=== PATIENT | female | born 1945 | race Hispanic/Latino ===

== ENCOUNTER 2019-05-14 11:24 | Inpatient (IN) | payer MEDICARE ==
--- OUTSIDE RECORDS SUMMARY | 2019-05-14 11:27 | XMS REPORT | Summary of Care ---
:1945 Author Organization [facility] [[email or web address]] - Health Address [address] [place] [id number] Support Name Relationship Address Phone Mayur Burroughs Unavailable 13 [birth year][address] [place] [address] Care Team Providers Name Role Phone Godwin Stein DO Medical Transcriber Daniel Ovalles Primary Care Provider Encounter Details Date Type Department Care Team Description 03/04/2019 Orders Only [facility] [[email or web address]] Doctor Unassigned, No [address] [facility] [place] [address] [address] [place] [address] Allergies No Known Allergiesdocumented as of this encounter (statuses as of 03/10/2019) Medications Medication Sig Dispensed Refills Start Date End Date Status acetaminophen 325 mg Take by mouth 0 Active tablet every 6 (six) hours as needed. MULTIVITAMIN/IRON/FOLIC Take by mouth. 0 Active ACID (CENTRUM COMPLETE ORAL) canagliflozin (INVOKANA) Take by mouth. 0 Active 100 mg tablet aspirin 81 mg chewable Take 81 mg by 0 Active tablet mouth daily. hydroCHLOROthiazide 25 mg Take 25 mg by 0 Active tablet mouth daily. metFORMIN 500 mg tablet Take 500 mg by 0 Active mouth 2 (two) times daily with meals. acetaminophen-codeine Take 1 tablet by 0 Active 300-30 mg tablet mouth every 4 (four) hours as needed. amLODIPine (NORVASC) 10 Take 10 mg by 0 Active mg tablet mouth daily. metFORMIN 1,000 mg 24 hr Take 1,000 mg by 0 Active tablet mouth daily with breakfast. glimepiride 4 mg tablet Take 4 mg by 0 Active mouth daily with breakfast. canagliflozin (INVOKANA) Take by mouth. 0 Active 300 mg tablet carvedilol 12.5 mg tablet Take 12.5 mg by 0 Active mouth 2 (two) times daily with meals. gabapentin 300 mg capsule Take 300 mg by 0 Active mouth 3 (three) times daily. Oxyquinoline-Na Lauryl Insert 0.5 1 Tube 3 10/16/2017 Active Sulfate (TRIMO-ASTUDILLO JELLY) Applicators into 0.025-0.01 % Gel vagina SEE-INSTRUCTIONS . Apply 1/2 applicator per vagina twice weekly until discontinue estradiol 0.01 % (0.1 Insert 1 g into 42.5 g 2 05/02/2018 Active mg/gram) vaginal vagina 2 (two) creamIndications: times per week Encounter for pessary (per protocol). maintenance documented as of this encounter (statuses as of 03/10/2019) Active Problems Problem Noted Date Encounter for pessary maintenance 03/04/2019 documented as of this encounter (statuses as of 03/10/2019) Social History Tobacco Use Types Packs/Day Years Used Date Former Smoker Quit: 07/28/2016 Smokeless Tobacco: Never Used Alcohol Use Drinks/Week oz/Week Comments No Sex Assigned at Date Recorded Not on file Job Start Date Occupation Industry Not on file Not on file Not on file Travel History Travel Start Travel End No recent travel history available. documented as of this encounter Last Filed Vital Signs Not on filedocumented in this encounter Plan of Treatment Date Type Specialty Care Team Description 06/03/2019 Office Visit Obstetrics & Gynecology Alicja Haines MD [address] [place] [address] [place] [address] [phone] Health Maintenance Due Date Last Done Comments HEPATITIS C (HCV) SCREEN 1945 DTaP,Tdap,and Td Vaccines (1 - Tdap) 1957 Zoster Recombinant Vaccine (SHINGRIX) 1996 (1 of 2) LUNG CANCER SCREEN: Recommended for 2001 age 55-80 with 30 + pack year history Medicare Wellness Visit 11/10/2011 Osteoporosis Screening 11/10/2011 PNEUMOCOCCAL VACCINES 65+ (1 of 2 - 11/10/2011 PCV13) Breast Cancer Screening (MAMMOGRAM) 08/11/2018 08/11/2017 (Previously completed), 10/20/2009 INFLUENZA VACCINE (#1) 2018 documented as of this encounter Procedures Procedure Name Priority Date/Time Associated Diagnosis Comments [id number] CONSENT Routine 03/04/2019 12:01 AM [employer] documented in this encounter Results Not on filedocumented in this encounter Insurance Payer Benefit Plan / Subscriber ID Effective Phone Address Type Group Dates [facility] [id number] 2019-Prese PPO HEALTHCARE HEALTHCARE/AARP nt [facility] [id number] 2018-Prese Medicare Adv HEALTHCARE - HEALTHCARE DUAL nt PPO MANAGED COMPLETE MEDICARE documented as of this encounter
--- OUTSIDE RECORDS SUMMARY | 2019-05-14 11:27 | XMS REPORT ---
:1945 Author Organization [facility] Address [address] [place] [address] Care Team Providers Name Role Phone Unavailable Unavailable Unavailable Problems This patient has no known problems. Allergies, Adverse Reactions, Alerts This patient has no known allergies or adverse reactions. Medications This patient has no known medications.
[2019-05-14] MEDS ORDERED: METOPROLOL TAR 25 MG TAB ONE (12:02)
[2019-05-14] MEDS ORDERED: METOPROLOL TARTRATE 5 MG/5 ML INJ IV ONE (12:03)
[2019-05-14 12:10] LABS: Absolute Lymphocytes (CBC) 2.4 K/uL (0.7-4.9); Basophils % 0.8 % (0-1.3); Hematocrit 34.4 % (36.0-45.0); Lymphocytes % 22.1 % (15.3-44.8); MPV 8.6 fL (7.6-11.3); RBC Red Blood Cell Count 3.63 M/uL (3.86-4.86)
[2019-05-14 12:14] LABS: Protime INR 1.12
--- NOTE | 2019-05-14 12:27 | RAD REPORT ---
EXAM DESCRIPTION: RAD - Chest Single View - 05/14/2019 12:13 pm CLINICAL HISTORY: DYSPNEA COMPARISON: Portable chest November 2012 TECHNIQUE: AP portable chest image was obtained 05/14/2019 12:13 pm . FINDINGS: No peripheral mass or consolidation. Minimal prominence of the interstitial pattern noted. This is not substantially different. Borderline or mild cardiomegaly is present accentuated by ryan ble technique and a slightly shallow inspiratory effort. Upper lobe vasculature is within limits of n ormal. Heart is accentuated by slight rotation. No measurable pleural effusion and no pneumothorax. N o acute bony abnormality seen. No acute aortic findings suspected. IMPRESSION: No focal mass or consolidation peer Heart size is upper normal or slightly enlarged. No significant failure or volume overload findings.
[2019-05-14 12:36] LABS: ALT/SGPT 26 U/L (12-78); AST/SGOT 32 U/L (15-37); Albumin 3.4 g/dL (3.4-5.0); Alkaline Phosphatase 56 U/L (45-117); BUN Blood Urea Nitrogen 27 mg/dL (7-18); Bicarbonate 24 mmol/L (21-32); Bilirubin Direct 0.1 mg/dL (0-0.2); Bilirubin Total 0.3 mg/dL (0.2-1.0); Glucose Level 209 mg/dL (74-106); Magnesium 1.5 mg/dL (1.8-2.4); NT PRO-BNP 3138 pg/mL (<125); Potassium 4.6 mmol/L (3.5-5.1); Protein, Total 8.4 g/dL (6.4-8.2); Sodium Level 139 mmol/L (136-145); Troponin (Emerg Dept Use Only) < 0.02 ng/mL (0.0-0.045)
--- NOTE | 2019-05-14 12:41 | ER ---
Nurse's Notes [facility] Name: Taryn Sebastian Age: 73 yrs Sex: Female : 1945 Arrival Date: 05/14/2019 Time: 11:28 Bed 8 Private MD: Daniel Ovalles E Diagnosis: Persistent atrial fibrillation;Dyspnea, unspecified Presentation: 05/13 11:34 Chief complaint: Patient states: "I just don't feel right, I think my afib is acting hb up." Pt reports worsening SOB, nonproductive cough, pain with cough, and nausea x 1 week. Coronavirus screen: Patient reports a subjective fever or greater than 100.4F, or cough, or shortness of breath, or difficulty breathing. Surgical mask placed on patient. Patient moved to private room, placed in contact and droplet isolation with eye protection until further assessment. Patient denies travel on a cruise ship or to a country the [facility] currently lists as an affected area. Ebola Screen: No symptoms or risks identified at this time. Initial Sepsis Screen: Does the patient meet any 2 criteria? No. Patient's initial sepsis screen is negative. Risk Assessment: Do you want to hurt yourself or someone else? Patient reports no desire to harm self or others. 11:34 Method Of Arrival: Wheelchair hb 11:34 Acuity: BASHIR 2 hb Historical: - Allergies: 11:37 No Known Allergies; hb - PMHx: 11:37 Atrial Fib; Diabetes - NIDDM; Arthritis; hb - PSHx: 11:37 portion of pancreas removed; spleenectomy; hb - Immunization history:: Adult Immunizations up to date. - Social history:: Smoking status: Patient denies any tobacco usage or history of. - Family history:: not pertinent. - Hospitalizations: : No recent hospitalization is reported. Screenin:45 Abuse screen: Denies threats or abuse. Nutritional screening: No deficits noted. em Tuberculosis screening: No symptoms or risk factors identified. Fall Risk None identified. Assessment: 11:45 General: Appears in no apparent distress. uncomfortable, well groomed, well developed, em well nourished, Behavior is calm, cooperative, appropriate for age, Denies fever. Pain: Complains of pain in chest Pain currently is 2 out of 10 on a pain scale. Pain began 1 week ago. Neuro: Level of Consciousness is awake, alert, obeys commands, Oriented to person, place, time, situation, Appropriate for age. Cardiovascular: Reports chest pain, diaphoresis, palpitations, shortness of breath, Capillary refill < 3 seconds Rhythm is atrial fibrillation with rapid ventricular response. Respiratory: Reports shortness of breath at rest Airway is patent Respiratory effort is even, Respiratory pattern is regular, tachypnea Breath sounds are clear bilaterally. GI: Abdomen is round non-distended, Bowel sounds present X 4 quads. Abd is soft X 4 quads Abdomen is tender to palpation in epigastric area, right upper quadrant and left upper quadrant Reports upper abdominal pain, Patient currently denies nausea, vomiting. Derm: Skin is intact, is thin, Skin is clammy, Skin is pink, Skin temperature is cool. Musculoskeletal: Capillary refill < 3 seconds, Range of motion: intact in all extremities. 12:15 Reassessment: Patient appears in no apparent distress at this time. Patient and/or em family updated on plan of care and expected duration. Pain level reassessed. Patient is alert, oriented x 3, equal unlabored respirations, skin warm/dry/pink. 12:50 Reassessment: Patient appears in no apparent distress at this time. Patient and/or em family updated on plan of care and expected duration. Pain level reassessed. Patient is alert, oriented x 3, equal unlabored respirations, skin warm/dry/pink. Patient states feeling better. 13:55 Reassessment: Dr. Galarza at bedside discussing POC. em Vital Signs: 11:34 BP 146 / 86; Pulse 40; Resp 18; Temp 97; Pulse Ox 95% on R/A; Weight 111.13 kg; Height hb 5 ft. 7 in. (170.18 cm); Pain 2/10; 12:00 BP 125 / 96; Pulse 161 MON; Resp 36 S; Pulse Ox 97% on R/A; Pain 2/10; em 12:15 BP 109 / 57; Pulse 124 MON; Resp 32; Pulse Ox 98% on R/A; Pain 0/10; em 12:50 BP 125 / 96; Pulse 135; Resp 28; Pulse Ox 95% on R/A; Pain 0/10; em 13:52 BP 118 / 81; Pulse 119; Resp 28; Pulse Ox 98% on 2 lpm NC; Pain 0/10; em 11:34 Body Mass Index 38.37 (111.13 kg, 170.18 cm) hb 12:00 A fib with Rapid ventricular response em 12:15 A fib with Rapid ventricular response em 12:50 placed on 2L via NC em ED Course: 11:28 Patient arrived in ED. mr 11:28 Daniel Ovalles MD is Private Physician. mr 11:36 Triage completed. hb 11:37 Arm band placed on. hb 11:39 Paige Weir, NO is Primary Nurse. tw2 11:42 Nabil Sutherland MD is Attending Physician. rn 11:45 Patient has correct armband on for positive identification. Placed in gown. Bed in low em position. Call light in reach. secured entrance monitor on. Pulse ox on. NIBP on. 11:48 EKG done, by ED staff, reviewed by Nabil Sutherland MD. em 12:00 Tung Grover RN is Primary Nurse. em 12:05 Initial lab(s) drawn, by mn, sent to lab. Inserted saline lock: 20 gauge in right em1 antecubital area, using aseptic technique. Blood collected. 12:15 XRAY Chest (1 view) In Process Unspecified. EDMS 12:41 Michell Bui MD is Hospitalizing Provider. rn 14:21 No provider procedures requiring assistance completed. Patient admitted, IV remains in em place. Administered Medications: 12:05 Drug: Metoprolol 5 mg Route: IVP; Site: right antecubital; em 12:15 Follow up: Response: No adverse reaction; Cardiac rhythm is unchanged em 12:10 Drug: Metoprolol 25 mg Route: PO; em 12:41 Follow up: Response: No adverse reaction em 12:55 Drug: Digoxin 0.125 mg Route: IVP; Site: right antecubital; em 13:05 Follow up: Response: No adverse reaction; Pain is unchanged, physician notified em 12:56 Drug: Magnesium Sulfate 1 grams Route: IVPB; Infused Over: 1 hrs; Site: right em antecubital; 14:23 Follow up: Response: No adverse reaction; IV Status: Completed infusion; IV Intake: em 100ml 13:20 Drug: Digoxin 0.125 mg Route: IVP; Site: right antecubital; jl7 13:52 Follow up: Response: No adverse reaction; Marked relief of symptoms em Intake: 14:23 IV: 100ml; Total: 100ml. em Outcome: 12:41 Decision to Hospitalize by Provider. rn 14:21 Admitted to Tele accompanied by tech, via wheelchair, room 428, with oxygen, on em monitor, with chart, Report called to NO Burns 14:21 Condition: good 14:21 Instructed on the need for admit, Demonstrated understanding of instructions. 14:23 Patient left the ED. em Signatures: Dispatcher [employer] Manda Guillen Edgar, RN Nabil Ann MD MD rn Martinez, Eric em1 Ruth Ann Ellsworth RN RN hb Wise, Tara, RN RN tw2 Oumar Ortiz RN RN jl7 Corrections: (The following items were deleted from the chart) 12:19 12:00 BP 125 / 96; Pulse 161bpm; Monitor: A fibResp 36bpm; Spontaneous; Pulse Ox 97% em RA; Pain 2/10; em
--- NOTE | 2019-05-14 12:42 | EDPHYS ---
Physician Documentation [facility] Name: Taryn Sebastian Age: 73 yrs Sex: Female : 1945 Arrival Date: 05/14/2019 Time: 11:28 Bed 8 Private MD: Daniel Ovalles E ED Physician Nabil Sutherland HPI: 05/13 11:53 This 73 yrs old Female presents to ER via Wheelchair with complaints of fast financial internship rate, Shortness Of Breath. 11:53 The patient has shortness of breath with light activity. Onset: The symptoms/episode rn began/occurred 1 week(s) ago. Duration: The symptoms are continuous. The patient's shortness of breath is aggravated by light activity, supine position, talking, walking. Severity of symptoms: At their worst the symptoms were moderate in the emergency department the symptoms are unchanged. The patient has not experienced similar symptoms in the past. The patient has not recently seen a physician. Reports 1 week of dyspnea on exertion and when supine, assoc with palpitations and fast heart rate, states noticed HR in 110s-120s for about 5 days now. Denies previous diagnosis with afib or irregular rate rate/fast heart rate. No fever. + dry cough. Reports worst symptom is her dyspnea. . Historical: - Allergies: 11:37 No Known Allergies; hb - PMHx: 11:37 Atrial Fib; Diabetes - NIDDM; Arthritis; hb - PSHx: 11:37 portion of pancreas removed; spleenectomy; hb - Immunization history:: Adult Immunizations up to date. - Social history:: Smoking status: Patient denies any tobacco usage or history of. - Family history:: not pertinent. - Hospitalizations: : No recent hospitalization is reported. ROS: 11:53 Constitutional: Negative for fever, chills, and weight loss, Eyes: Negative for injury, rn pain, redness, and discharge, Neck: Negative for injury, pain, and swelling, Cardiovascular: Negative for chest pain, and edema, Respiratory: + sob and dry cough Abdomen/GI: Negative for abdominal pain, nausea, vomiting, diarrhea, and constipation, MS/Extremity: Negative for injury and deformity, Skin: Negative for injury, rash, and discoloration, Neuro: Negative for headache, weakness, numbness, tingling, and seizure. Exam: 11:52 ECG was reviewed by the Attending Physician. rn 11:53 Constitutional: Overweight woman, mild tachypnea Head/Face: Normocephalic, rn atraumatic. ENT: MMM Cardiovascular: Irregularly irregular rhythm, tachycardic, intact distal pulses Respiratory: + mild tachypnea with diminished breath sounds bilateral bases Abdomen/GI: soft, non-tender MS/ Extremity: Pulses equal, no cyanosis. Neurovascular intact. Full, normal range of motion. Equal circumference. Neuro: Awake and alert, GCS 15, oriented to person, place, time, and situation. Cranial nerves II-XII grossly intact. Motor strength 5/5 in all extremities. Sensory grossly intact. Vital Signs: 11:34 BP 146 / 86; Pulse 40; Resp 18; Temp 97; Pulse Ox 95% on R/A; Weight 111.13 kg; Height hb 5 ft. 7 in. (170.18 cm); Pain 2/10; 12:00 BP 125 / 96; Pulse 161 MON; Resp 36 S; Pulse Ox 97% on R/A; Pain 2/10; em 12:15 BP 109 / 57; Pulse 124 MON; Resp 32; Pulse Ox 98% on R/A; Pain 0/10; em 12:50 BP 125 / 96; Pulse 135; Resp 28; Pulse Ox 95% on R/A; Pain 0/10; em 13:52 BP 118 / 81; Pulse 119; Resp 28; Pulse Ox 98% on 2 lpm NC; Pain 0/10; em 11:34 Body Mass Index 38.37 (111.13 kg, 170.18 cm) hb 12:00 A fib with Rapid ventricular response em 12:15 A fib with Rapid ventricular response em 12:50 placed on 2L via NC em MDM: 11:42 Patient medically screened. rn 12:39 Differential diagnosis: CHF exacerbation, Myocardial Infarction pulmonary edema, atrial rn fibrillation with RVR, dehydration, pneumonia, pulmonary edema. Data reviewed: vital signs, nurses notes, lab test result(s), EKG, radiologic studies, plain films, and as a result, I will admit patient. Counseling: I had a detailed discussion with the patient and/or guardian regarding: the historical points, exam findings, and any diagnostic results supporting the discharge/admit diagnosis, lab results, radiology results, the need for further work-up and treatment in the hospital. Admission orders: after a detailed discussion of the patient's condition and case, the admit orders are written by me. ED course: Pt with afib/RVR, BP decreased rapidly with beta lux, digoxin added, will admit to hospitalist. . 05/13 11:51 Order name: Basic Metabolic Panel; Complete Time: 12:38 rn 05/13 11:51 Order name: CBC with Diff; Complete Time: 12:37 05/13 11:51 Order name: LFT's; Complete Time: 12:38 05/13 11:51 Order name: Magnesium; Complete Time: 12:38 05/13 11:51 Order name: NT PRO-BNP; Complete Time: 12:38 05/13 11:51 Order name: PT-INR; Complete Time: 12:37 05/13 11:51 Order name: Troponin (emerg Dept Use Only); Complete Time: 12:38 05/13 11:51 Order name: XRAY Chest (1 view); Complete Time: 12:37 05/13 11:51 Order name: EKG; Complete Time: 11:52 05/13 11:51 Order name: Cardiac monitoring; Complete Time: 12:07 05/13 11:51 Order name: EKG - Nurse/Tech; Complete Time: 12:07 05/13 11:51 Order name: IV Saline Lock; Complete Time: 12:05 05/13 11:51 Order name: Labs collected and sent; Complete Time: 12:05 05/13 11:51 Order name: O2 Per Protocol; Complete Time: 12:20 rn 05/13 11:51 Order name: O2 Sat Monitoring; Complete Time: 12:20 05/13 13:16 Order name: CONS Pharmacy Consult EDMS 05/13 13:16 Order name: Heart Healthy EDMS EC:52 Rate is 155 beats/min. Rhythm is irregularly irregular. QRS [place] is Normal. QRS rn interval is normal. QT interval is normal. No Q waves. T waves are Inverted in leads I, aVL. No ST changes noted. Clinical impression: Atrial Fibrillation. Interpreted by me. Reviewed by me. Administered Medications: 12:05 Drug: Metoprolol 5 mg Route: IVP; Site: right antecubital; em 12:15 Follow up: Response: No adverse reaction; Cardiac rhythm is unchanged em 12:10 Drug: Metoprolol 25 mg Route: PO; em 12:41 Follow up: Response: No adverse reaction em 12:55 Drug: Digoxin 0.125 mg Route: IVP; Site: right antecubital; em 13:05 Follow up: Response: No adverse reaction; Pain is unchanged, physician notified em 12:56 Drug: Magnesium Sulfate 1 grams Route: IVPB; Infused Over: 1 hrs; Site: right em antecubital; 14:23 Follow up: Response: No adverse reaction; IV Status: Completed infusion; IV Intake: em 100ml 13:20 Drug: Digoxin 0.125 mg Route: IVP; Site: right antecubital; jl7 13:52 Follow up: Response: No adverse reaction; Marked relief of symptoms em Disposition: 12:41 Critical Care:. rn Disposition: 05/14/19 12:41 Hospitalization ordered by Michell Bui for Inpatient Admission. Preliminary diagnosis are Persistent atrial fibrillation, Dyspnea, unspecified. - Bed requested for Telemetry/MedSurg (Inpatient). - Status is Inpatient Admission. em - Condition is Stable. - Problem is new. - Symptoms have improved. Critical care time excluding procedures: 12:41 Critical care time: Bedside Care: 25 minutes, Consultation: 5 minutes. Total time: 30 rn minutes Signatures: Dispatcher [employer] EDAltagracia Abreu Edgar, RN Nabil Ann MD MD rn Baxter, Heather, RN Oumar Villatoro RN RN jl7 Corrections: (The following items were deleted from the chart) 13:35 12:41 Hospitalization Ordered by Michell Bui MD for Inpatient Admission. Preliminary bd diagnosis is Persistent atrial fibrillation; Dyspnea, unspecified. Bed requested for Telemetry/MedSurg (Inpatient). Status is Inpatient Admission. Condition is Stable. Problem is new. Symptoms have improved. rn 14:23 13:35 05/14/2019 12:41 Hospitalization Ordered by Michell Bui MD for Inpatient em Admission. Preliminary diagnosis is Persistent atrial fibrillation; Dyspnea, unspecified. Bed requested for Telemetry/MedSurg (Inpatient). Status is Inpatient Admission. Condition is Stable. Problem is new. Symptoms have improved. bd
[2019-05-14] MEDS ORDERED: DIGOXIN 0.25 MG/ML AMP ONE ×2 (12:49→13:25)
[2019-05-14] MEDS ORDERED: MAGNESIUM SULFATE 1 gm IVPB 1 GM/100 ML BAG IV ONE ×2 (12:49→19:17)
--- NOTE | 2019-05-14 13:16 | P.HP ---
Certification for Inpatient With expected LOS: >2 Midnights Practitioner: I am a practitioner with admitting privileges, knowledge of patient current condition, hospital course, and medical plan of care. Services: Services provided to patient in accordance with Admission requirements found in Title 42 Section 412.3 of the Code of Federal Regulations Patient History Date of Service: 05/14/19 Reason for admission: Shortness of breath History of Present Illness: Ms. Sebastian is a 73-year-old female with history of diabetes mellitus who presented to the ER with the 6 days history of progressive shortness of breath with associated palpitation. Symptoms started slowly and has progressed significantly. She has had intermittent palpitations and unable to recollect any triggers. She denies any overt chest pain however reports associated chest pressure with the palpitations. She recalls orthopnea, fatigue with minimal activity. She denies any LE swelling. Today, SOB on exertion progressed to rest as she is unable to complete sentences without gasping for air. She denies any fever or chills, URI or contact/exposure to COVID19. Allergies No Known Allergies Allergy (Verified 12/16/13 15:45) Home Medications: Amlodipine [Norvasc*] 5 mg PO BID 12/16/13 Celecoxib [Celebrex*] 200 mg PO DAILY 12/16/13 Glyburide [Diabeta] 5 mg PO BID 12/16/13 Metformin ER [Glucophage ER*] 500 mg PO TID 12/16/13 carvediloL [Coreg*] 12.5 mg PO BID 12/16/13 lisinopriL [Prinivil*] 20 mg PO DAILY WITH BREAKFAST 12/16/13 Nitrofuran Macro [Macrobid*] 100 mg PO DAILY #5 cap 12/20/13 - Past Medical/Surgical History Diabetic: Yes -: Diabetes Mellitus -: Pancreatic tumor s/p removal -: Hypertension -: Severe osteoarthritis -: tubendectomy -: Cholecysectomy -: tumor on pancreas removed 2012 -: Splenectomy with pancreatic tumor removal - Family History Family History: Reviewed- Non-Contributory - Social History Smoking Status: Never smoker Alcohol use: No CD- Drugs: No Caffeine use: Yes Review of Systems General: Weakness, Malaise Eyes: Unremarkable ENT: Unremarkable Respiratory: Shortness of Breath, SOB with Excertion Cardiovascular: Palpitations, Orthopnea, Light Headedness Gastrointestinal: Nausea, Distention, Unremarkable Genitourinary: Unremarkable Musculoskeletal: Unremarkable Integumentary: Unremarkable Neurological: Unremarkable Lymphatics: Unremarkable Physical Examination - Vital Signs Temperature: 97.9 F Blood Pressure: 118/81 Pulse: 119 Respirations: 14 Pulse Ox (%): 98 (2LNC) - Physical Exam General: Alert, In no apparent distress, Mild distress, Obese HEENT: Atraumatic, PERRLA, Mucous membr. moist/pink, EOMI, Sclerae nonicteric Neck: Supple, 2+ carotid pulse no bruit, No LAD, JVD distended Respiratory: Diminished, Crackles/rales Cardiovascular: No edema, Irregular heart rate/rhythm Gastrointestinal: Normal bowel sounds, Soft and benign, No tenderness Musculoskeletal: No clubbing, No tenderness Integumentary: No rashes Neurological: Normal speech, Normal strength at 5/5 x4 extr, Normal tone, Normal affect Lymphatics: No axilla or inguinal lymphadenopathy - Studies Laboratory Data (last 24 hrs) 05/14/19 12:00: PT 13.2 H, INR 1.12 05/14/19 12:00: WBC 10.9, Hgb 11.3 L, Hct 34.4 L, Plt Count 420 H 05/14/19 12:00: Sodium 139, Potassium 4.6, BUN 27 H, Creatinine 1.28, Glucose 209 H, Magnesium 1.5 L D, Total Bilirubin 0.3, AST 32, ALT 26, Alkaline Phosphatase 56 Assessment and Plan - Advance Directives Does patient have a Living Will: No Does patient have a Durable POA for Healthcare: No - Code Status/Comfort Care Code Status Assessed: Yes Code Status: Do Not Attempt Resuscitat Physician Review Additional Text: Ms. Sebastian is 73 y/o female pw palpitation & SOB, found to be in afib with RVR # Afib with RVR- denies any prior h/o Afib. Currently HR in 110-120; will consider digoxin if HR remains persistently > 120. -trend troponin. TSH -[id number]- 2 thus far, initiate full lovenox pending cardio evaluation -Echocardiogram -Aspirin. check lipid. -Telemonitoring. #Acute decompensated HF- Unknown type. Clinical HF. -BNP elevated, though CXR with no pulm vasc congestion. -BP on low normal side. Will use lasix cautiously -low salt diet, strict I&O monitoring, daily weights -Echocardiogram -Cardio consulted. #Diabetes complicated by neuropathy- check hgba1c. -BG AC & HS and cover with ISS #H/o Hypertension- hold other antihypertensives to maximize diuretics and chronotropic meds. -ACEI on hold #Obesity- weight loss advised DVT ppx-on full dose lovenox. Code status- patient is a DNR/DNI; her son is NOK
[2019-05-14] MEDS ORDERED: D50W 25 GM/50 ML SYRINGE/VIAL IV PRN (14:17)
[2019-05-14] MEDS ORDERED: GLUCAGON 1 MG/VIAL IM PRN (14:17)
[2019-05-14 15:23] VITALS: BMI 39.5
[2019-05-14] MEDS: Enoxaparin 120 MG/0.8 ML SYR SQ SCH ×2 (15:55→20:36)
[2019-05-14] MEDS: INSULIN -REGULAR HUMAN 50 UNIT/0.5 ML ML SQ SCH ×2 (16:30→20:44)
[2019-05-14] MEDS: FUROSEMIDE 20 MG/ 2ML VIAL IV SCH (16:52)
[2019-05-14] MEDS ORDERED: METOPROLOL TAR 25 MG TAB PO SCH (18:00)
[2019-05-14] MEDS: carvediloL 12.5 MG TAB PO SCH (18:41)
[2019-05-14] MEDS: GABAPENTIN 400 MG CAP PO SCH (20:36)
[2019-05-15] MEDS: CODEINE 30MG/APAP 300MG TAB PO PRN ×2 (01:33→16:16)
[2019-05-15] MEDS: GABAPENTIN 400 MG CAP PO SCH ×3 (05:30→21:23)
[2019-05-15 06:38] LABS: Absolute Lymphocytes (CBC) 3.6 K/uL (0.7-4.9); Basophils % 0.3 % (0-1.3); Hematocrit 31.8 % (36.0-45.0); Lymphocytes % 33.8 % (15.3-44.8); MPV 8.4 fL (7.6-11.3)
[2019-05-15 06:56] LABS: Albumin 3.2 g/dL (3.4-5.0); Bilirubin Total 0.5 mg/dL (0.2-1.0); Magnesium 1.6 mg/dL (1.8-2.4); Protein, Total 7.8 g/dL (6.4-8.2)
[2019-05-15] MEDS: INSULIN -REGULAR HUMAN 50 UNIT/0.5 ML ML SQ SCH ×4 (07:30→21:23)
[2019-05-15] MEDS ORDERED: MAGNESIUM SULFATE 1 gm IVPB 1 GM/100 ML BAG IV ONE (09:00)
[2019-05-15] MEDS: Enoxaparin 120 MG/0.8 ML SYR SQ SCH ×2 (09:09→21:23)
[2019-05-15] MEDS: carvediloL 12.5 MG TAB PO SCH (09:09)
[2019-05-15] MEDS: ASPIRIN 81 MG CHEWABLE TABLET PO SCH (09:10)
[2019-05-15] MEDS: FUROSEMIDE 20 MG/ 2ML VIAL IV SCH ×2 (09:10→16:12)
--- NOTE | 2019-05-15 10:59 | EKG ---
Test Date: 2019-05-14 Test Time: 11:48:53 [employer] Manager: FALGUNI MEASUREMENT RESULTS: Intervals: Rate: 155 LA: QRSD: 72 QT: 280 QTc: 449 [place]: P: LA: QRS: 16 T: 174 INTERPRETIVE STATEMENTS: Atrial fibrillation with rapid ventricular response Low voltage QRS Nonspecific ST and T wave abnormality, probably digitalis effect Abnormal ECG Compared to ECG 11/23/2012 16:30:49 Low QRS voltage now present ST (T wave) deviation now present Sinus rhythm no longer present Electronically Signed On 05-15-19 10:56:23 CDT by Pankaj Orozco
--- NOTE | 2019-05-15 13:01 | P.PN ---
Subjective Date of Service: 05/15/19 Chief Complaint: Shortness of breath Subjective: Improving Review of Systems 10-point ROS is otherwise unremarkable Physical Examination - Vital Signs Temperature: 98.2 F Blood Pressure: 137/76 Pulse: 116 Respirations: 18 Pulse Ox (%): 93 - Physical Exam General: Alert, In no apparent distress HEENT: Atraumatic, PERRLA, EOMI Neck: Supple, JVD not distended Respiratory: Diminished, Crackles/rales Cardiovascular: Irregular heart rate/rhythm Gastrointestinal: Normal bowel sounds, No tenderness Musculoskeletal: No tenderness Integumentary: No rashes Neurological: Normal speech, Normal tone, Normal affect Lymphatics: No axilla or inguinal lymphadenopathy Assessment & Plan Physician Review Additional Text: Ms. Sebastian is 73 y/o female pw palpitation & SOB, found to be in afib with RVR # Afib with RVR- denies any prior h/o Afib.remains in Afib, rate controlled. -Troponin & TSH unremarkable. -[id number] 2 thus far onfull lovenox pending cardio evaluation -Echocardiogram -Aspirin. -Telemonitoring. ROSA toth, started on sotalol. Monitor for improvement, otherwise, consider cardioversion. #Acute decompensated HF- Unknown type. Clinical HF. -BNP elevated, though CXR with no pulm vasc congestion. -continue lasix cautiously -low salt diet, strict I&O monitoring, daily weights -Echocardiogram pending. Cardio following. #Diabetes complicated by neuropathy- hgba1c 7.8. -BG AC & HS and cover with ISS #H/o Hypertension- hold other antihypertensives to maximize diuretics and chronotropic meds. -ACEI on hold #Obesity- weight loss advised DVT ppx-on full dose lovenox. Code status- patient is a DNR/DNI; her son is NOK
[2019-05-15 13:07] LABS: Urine Appearance CLEAR; Urine Bilirubin NEGATIVE (NEG); Urine Blood TRACE (NEG); Urine Color YELLOW; Urine Glucose NEGATIVE (NEG); Urine Protein NEGATIVE (NEG); Urine Specific Gravity <=1.005 (1.005-1.030); Urine Urobilinogen 0.2 mg/dL (0.2-1.0)
[2019-05-15 13:11] LABS: Urine Microscopic Reflex ORDER UMIC
--- NOTE | 2019-05-15 13:30 | CON ---
Date of Consultation: 05/15/[address] Bui on 05/14/2019. I saw the patient on 05/15/2019. Reason For Consultation: Atrial fibrillation. History Of Present Illness: Ms. Sebastian is a 73-year-old woman. She has had a history of paroxysmal atrial fibrillation in the past, diabetes. She is status post splenectomy. Came in with shortness o f breath, palpitation, was found to have atrial fibrillation, rapid ventricular response. Denied any PND, orthopnea, pedal edema. Denied any syncope. Denied any chest pain, nausea, or vomiting. Her workup so far includes a normal TSH. Her BNP was 3138. Her magnesium was 1.5. Troponin was negativ e. Glucose was 209. She is feeling better today, although her heart rate still in the 110-120 in at rial fibrillation. Allergies: NONE. Review of Systems: Positive for being DNR. Social History: Negative. Family History: Noncontributory. Medications: Include Norvasc, Neurontin, Coreg, Amaryl, and metformin. Physical Examination: Vital Signs: Stable. She was in atrial fibrillation. Rate of 120, afebrile. HEENT: Negative. Neck: Supple with no bruit. Chest: Clear to auscultation and percussion. Cardiac: Revealed an irregularly irregular rhythm and rate. No murmurs, gallops, or rubs. Abdomen: Benign. Extremities: Revealed no clubbing, cyanosis, or edema. Diagnostic Data: As stated earlier. Impression And Plan: Paroxysmal atrial fibrillation, rapid ventricular response with symptoms unresp onsive to beta lux. She is on Lovenox and aspirin. I will continue the Lovenox, aspirin, and lo w-dose Coreg. I am going to also start on Betapace 80 mg 1 p.o. b.i.d. She needs her magnesium mell ected. Her thyroid function is normal. Her other problems including hypertension, diabetes seems to be well controlled at this point. I will continue to follow her. If her Betapace does not work, we will consider cardioversion. NB/MODL Voice ID: [id number] Report ID: [id number]
[2019-05-15 13:46] LABS: Urine Bacteria 20-50 /HPF (<20); Urine Culture Reflex Order REFLEXED
[2019-05-15] MEDS: SOTALOL HCL 80 MG TAB PO SCH (16:12)
[2019-05-16] MEDS: CODEINE 30MG/APAP 300MG TAB PO PRN ×2 (00:43→22:01)
[2019-05-16 04:10] LABS: Basophils % 1.2 % (0-1.3); Hematocrit 33.5 % (36.0-45.0); Lymphocytes % 38.2 % (15.3-44.8); RBC Red Blood Cell Count 3.51 M/uL (3.86-4.86)
[2019-05-16 04:17] LABS: Magnesium 1.6 mg/dL (1.8-2.4)
[2019-05-16] MEDS: SOTALOL HCL 80 MG TAB PO SCH ×2 (06:24→17:08)
[2019-05-16] MEDS: INSULIN -REGULAR HUMAN 50 UNIT/0.5 ML ML SQ SCH ×4 (07:30→21:00)
[2019-05-16] MEDS: Enoxaparin 120 MG/0.8 ML SYR SQ SCH ×2 (08:10→22:01)
[2019-05-16] MEDS: GABAPENTIN 400 MG CAP PO SCH ×3 (08:11→22:02)
[2019-05-16] MEDS: FUROSEMIDE 20 MG/ 2ML VIAL IV SCH ×2 (08:11→17:08)
[2019-05-16] MEDS: ASPIRIN 81 MG CHEWABLE TABLET PO SCH (08:11)
[2019-05-16] MEDS ORDERED: METOPROLOL TAR 50 MG TAB PO ONE (10:51)
--- NOTE | 2019-05-16 14:10 | P.PN ---
Subjective Date of Service: 05/16/19 Subjective: Improving Met sitting in a chair. Feels improved. Ambulating and now less short of breath. Physical Examination - Vital Signs Temperature: 97.1 F Blood Pressure: 140/70 Pulse: 120 Respirations: 17 Pulse Ox (%): 99 - Physical Exam General: Alert, In no apparent distress HEENT: Atraumatic, PERRLA, EOMI Neck: Supple, JVD not distended Respiratory: Clear to auscultation bilaterally, Normal air movement Cardiovascular: Normal S1 S2, Irregular heart rate/rhythm Gastrointestinal: Normal bowel sounds, No tenderness Musculoskeletal: No tenderness Integumentary: No rashes Neurological: Normal speech, Normal tone, Normal affect Lymphatics: No axilla or inguinal lymphadenopathy - Studies Laboratory Tests 05/16/19 05/16/19 05/16/19 03:32 03:32 11:33 WBC 10.4 RBC 3.51 L Hct 33.5 L Plt Count 418 H Eosinophils % 4.8 H Sodium 137 Potassium 4.0 Chloride 102 Carbon Dioxide 30 Estimated GFR 54 L POC Glucose 198 H Calcium 9.2 Magnesium 1.6 L Medications List Reviewed: Yes Assessment & Plan Physician Review Additional Text: Ms. Sebastian is 73 y/o female pw palpitation & SOB, found to be in afib with RVR # Afib with RVR- denies any prior h/o Afib. remains in Afib, rate uncontrolled. -Troponin & TSH unremarkable. -[id number]- 2 thus far onfull lovenox pending cardio evaluation -Echocardiogram -Aspirin. -Telemonitoring. -started on sotalol. Monitor for improvement, otherwise, consider cardioversion. #Acute decompensated HF- Unknown type. Clinical HF. -BNP elevated, though CXR with no pulm vasc congestion. -continue lasix cautiously; close to euvolemia -low salt diet, strict I&O monitoring, daily weights -Echocardiogram pending. Cardio following. #Diabetes complicated by neuropathy- hgba1c 7.8. -BG AC & HS and cover with ISS #H/o Hypertension- hold other antihypertensives to maximize diuretics and chronotropic meds. -ACEI on hold #Obesity- weight loss advised DVT ppx-on full dose lovenox. Code status- patient is a DNR/DNI; her son is NOK
[2019-05-17 06:16] LABS: Absolute Lymphocytes (CBC) 4.1 K/uL (0.7-4.9); Basophils % 1.3 % (0-1.3); Hematocrit 34.9 % (36.0-45.0); Lymphocytes % 39.1 % (15.3-44.8); MPV 8.7 fL (7.6-11.3); RBC Red Blood Cell Count 3.73 M/uL (3.86-4.86)
[2019-05-17 06:20] LABS: Magnesium 1.6 mg/dL (1.8-2.4); Potassium 3.6 mmol/L (3.5-5.1)
[2019-05-17] MEDS: SOTALOL HCL 80 MG TAB PO SCH (06:41)
[2019-05-17 07:03] VITALS: TEMP 97.7
[2019-05-17] MEDS: INSULIN -REGULAR HUMAN 50 UNIT/0.5 ML ML SQ SCH ×2 (07:30→11:30)
[2019-05-17] MEDS: Enoxaparin 120 MG/0.8 ML SYR SQ SCH (09:00)
[2019-05-17] MEDS ORDERED: ATROPINE SULF 1 MG/10 ML SYR IV ONE (09:40)
[2019-05-17] MEDS ORDERED: MIDAZOLAM HCL 5 MG/5 ML INJ ONE (09:40)
[2019-05-17] MEDS ORDERED: NA CHLORIDE 0.9% 500 ML ONE (10:17)
[2019-05-17] MEDS ORDERED: MIDAZOLAM HCL 2 MG/2 ML INJ ONE (10:59)
[2019-05-17 11:48] VITALS: O2SAT 95
--- NOTE | 2019-05-17 12:00 | ECHO ---
HEIGHT: 5 ft 7 in WEIGHT: 252 lb 6.4 oz DATE OF STUDY: 05/16/[address]: Pankaj Orozco MD 2-DIMENSIONAL: YES M.MODE: YES DOPPLER: YES COLOR FLOW: YES TDS: NO PORTABLE: NO DEFINITY: NO BUBBLE STUDY: NO DIAGNOSIS: PREOP CARDIAC HISTORY: CATHERIZATION: NO SURGERY: NO PROSTHETIC VALVE: NO PACEMAKER: NO MEASUREMENTS (cm) DIASTOLIC (NORMALS) SYSTOLIC (NORMALS) IVSd 1.2 (0.6-1.2) LA Diam 3.7 (1.9-4.0) LVEF 60-65% LVIDd 4.5 (3.5-5.7) LVIDs 3.5 (2.0-3.5) %FS % LVPWd 1.2 (0.6-1.2) Ao Diam 2.6 (2.0-3.7) 2 DIMENSIONAL ASSESSMENT: RIGHT ATRIUM: NORMAL LEFT ATRIUM: NORMAL RIGHT VENTRICLE: NORMAL LEFT VENTRICLE: NORMAL TRICUSPID VALVE: NORMAL MITRAL VALVE: MITRAL ANNULAR CALCIFICATION PULMONIC VALVE: NORMAL AORTIC VALVE: NORMAL PERICARDIAL EFFUSION: NONE AORTIC ROOT: NORMAL LEFT VENTRICULAR WALL MOTION: NORMAL. DOPPLER/COLOR FLOW: MILD TRICUSPID REGURGITATION. COMMENTS: MILD TRICUSPID REGURGITATION. NORMAL LEFT VENTRICULAR SIZE AND FUNCTION. ATRIAL FIBRILLATION NOTED. NO WALL MOTION ABNORMALITY. NO THROMBUS. TECHNOLOGIST: BECKY RIZZO
--- NOTE | 2019-05-17 12:51 | P.DS ---
Admission Date: 05/14/19 Discharge Date: 05/18/19 Disposition: ROUTINE DISCHARGE Discharge Condition: GOOD Reason for Admission: Shortness of breath Consultations: Cardiology Brief History of Present Illness: Admission diagnosis- Atrial fibrillation with rapid ventricular rate. Acute decompensated heart failure Diabetes complicated by neuropathy History of hypertension Obesity Admission diagnosis- Atrial fibrillation with rapid ventricular rate s/p cardioversion Acute decompensated diastolic heart failure Diabetes complicated by neuropathy History of hypertension Obesity Hospital Course: Ms Sebastian is a 73-year-old female with a history of diabetes mellitus, CAD who presented to the hospital with episodes of shortness of breath and palpitation. Patient was found to be in atrial fibrillation with rapid ventricular response. She was initiated on rate-controlling medication and anti coagulation given how high [id number] score. Patient remained persistently in AFib with RVR despite beta-lux and pharmacological cardioversion. She was evaluated by directional driller and subsequently converted to NSR after direct current cardioversion. She was discharged home on sotalol and Xarelto for anti coagulation. On presentation, patient was in acute heart failure, echocardiogram showed preserved LVEF and she was the therapy with diuretics. She is currently euvolemic and stable. She will follow up with PCP and directional driller outpatient. Vital Signs/Physical Exam: Temp Pulse Resp BP Pulse Ox 97.7 F 63 12 107/55 L 97 05/17/19 11:48 05/17/19 11:58 05/17/19 11:58 05/17/19 11:58 05/17/19 04:00 General: Alert, In no apparent distress HEENT: Atraumatic, PERRLA, EOMI Neck: Supple, JVD not distended Respiratory: Clear to auscultation bilaterally, Normal air movement Cardiovascular: Regular rate/rhythm, Normal S1 S2 Gastrointestinal: Normal bowel sounds, No tenderness Musculoskeletal: No tenderness Integumentary: No rashes Neurological: Normal speech, Normal tone, Normal affect Lymphatics: No axilla or inguinal lymphadenopathy Laboratory Data at Discharge: WBC 10.5 K/uL (4.3-10.9) 05/17/19 05:47 Hgb 11.5 g/dL (12.0-15.0) L 05/17/19 05:47 Hct 34.9 % (36.0-45.0) L 05/17/19 05:47 Plt Count 464 K/uL (152-406) H 05/17/19 05:47 PT 13.2 SECONDS (9.5-12.5) H 05/14/19 12:00 INR 1.12 05/14/19 12:00 Sodium 137 mmol/L (136-145) 05/17/19 05:47 Potassium 3.6 mmol/L (3.5-5.1) 05/17/19 05:47 BUN 21 mg/dL (7-18) H 05/17/19 05:47 Creatinine 1.09 mg/dL (0.55-1.3) 05/17/19 05:47 Glucose 129 mg/dL (74-106) H 05/17/19 05:47 Magnesium 1.6 mg/dL (1.8-2.4) L 05/17/19 05:47 Total Bilirubin 0.5 mg/dL (0.2-1.0) 05/15/19 06:22 AST 28 U/L (15-37) 05/15/19 06:22 ALT 23 U/L (12-78) 05/15/19 06:22 Alkaline Phosphatase 50 U/L (45-117) 05/15/19 06:22 Triglycerides 186 mg/dL (<150) H 05/15/19 06:22 Cholesterol 150 mg/dL (<200) 05/15/19 06:22 HDL Cholesterol 36 mg/dL (40-60) L 05/15/19 06:22 Cholesterol/HDL Ratio 4.17 05/15/19 06:22 Home Medications: Metformin ER [Glucophage ER*] 500 mg PO NOON 12/16/13 Codeine/APAP [Tylenol #3*] 1 tab PO TID PRN 05/14/19 Gabapentin [Neurontin*] 1 cap PO TID 05/14/19 Glimepiride [Amaryl] 4 mg PO BID 05/14/19 Aspirin Chewable [Aspirin Chewable*] 81 mg PO DAILY #30 tab.chew 05/17/19 Rivaroxaban [Xarelto] 20 mg PO DAILY #30 tablet 05/17/19 Sotalol HCl [Betapace*] 80 mg PO BID 6AM 6PM #60 tab 05/17/19 Furosemide 40 mg PO DAILY #30 tablet 05/18/19 New Medications: Aspirin Chewable [Aspirin Chewable*] 81 mg PO DAILY #30 tab.chew Furosemide 40 mg PO DAILY #30 tablet Rivaroxaban [Xarelto] 20 mg PO DAILY #30 tablet Sotalol HCl [Betapace*] 80 mg PO BID 6AM 6PM #60 tab Diet: ADA Activity: Ad nick Followup: Carter Ivy MD [OUTSIDE PHYSICIAN] - 1 Week Pankaj Orozco MD [ACTIVE - CAN ADMIT] - 2-3 Days
[2019-05-17] MEDS: ASPIRIN 81 MG CHEWABLE TABLET PO SCH (13:07)
[2019-05-17] MEDS: FUROSEMIDE 20 MG/ 2ML VIAL IV SCH (13:08)
[2019-05-17] MEDS: GABAPENTIN 400 MG CAP PO SCH (13:08)
[2019-05-17 16:08] VITALS: BP 104/70
--- NOTE | 2019-05-17 16:37 | EKG ---
Test Date: 2019-05-17 Test Time: 11:12:25 Tape Transferrer: MINDY MEASUREMENT RESULTS: Intervals: Rate: 64 NM: 182 QRSD: 74 QT: 406 QTc: 418 [place]: P: 71 NM: 182 QRS: 21 T: 136 INTERPRETIVE STATEMENTS: Normal sinus rhythm Nonspecific ST and T wave abnormality Abnormal ECG Compared to ECG 05/14/2019 11:48:53 Atrial fibrillation no longer present ST (T wave) deviation still present Electronically Signed On 05-17-19 16:37:06 CDT by Pankaj Orozco
--- NOTE | 2019-05-17 16:39 | OP ---
Surgeon: Pankaj Orozco MD Supervisor Sterile Processing: Brandie Raya. Procedure Performed: Direct current cardioversion. Indication: Atrial fibrillation that had failed sotalol and beta-lux therapy. Description Of Procedure: Patient was brought to the paint laboratory technician as an inpatient. She received a total of 7 mg of Versed for IV sedation. Paddles were placed anteriorly and posterior in her chest. She received 3 total shocks; first one was 200, the second one was 300, and the third one was 300. She f inally converted to sinus rhythm and she stayed in it. There were no complications or blood loss. Final Diagnosis: Atrial fibrillation, status post direct current cardioversion. Sedation Time: Total conscious sedation was 30 minutes. Plan: To have her go home on her home medications including a low-dose beta-lux, Coreg that she had taken in the past, 80 mg 1 p.o. b.i.d. of sotalol, and Xarelto 20 mg daily. The case was discuss ed with Dr. Bui. She can go home today as far as I am concerned. I will see her in the office i n the next 2 weeks. JACOB/ROXANN Voice ID: [id number] Report ID: [id number]
== END 2019-05-17 15:40 | disposition home or self-care (01) | DRG 308 ==
LOC: SUPCPDRO 11:24 → ER 11:24 → ERHOLD 13:14 → 4TH 14:05
PROVIDERS: ADMIT Hospitalist; ATTEND Hospitalist
PROC: 5A2204Z Restoration of Cardiac Rhythm, Single (ICD-10-PCS; principal; 2019-05-17)
DX: I48.19 Other persistent atrial fibrillation (principal); I50.33 Acute on chronic diastolic (congestive) heart failure; I11.0 Hypertensive heart disease with heart failure; E66.9 Obesity, unspecified; I25.10 Atherosclerotic heart disease of native coronary artery without angina pectoris; E11.40 Type 2 diabetes mellitus with diabetic neuropathy, unspecified; Z66 Do not resuscitate; Z79.899 Other long term (current) drug therapy; Z90.49 Acquired absence of other specified parts of digestive tract; Z68.39 Body mass index [BMI] 39.0-39.9, adult; Z79.84 Long term (current) use of oral hypoglycemic drugs
CPT/HCPCS: 36415; 71045; 80048; 80053; 80061; 80076; 81003; 81015; 82947; 83036; 83735; 83880; 84443; 84484; 85025; 85610; 87077; 87086; 87088; 87186; 92960; 93005; 93306; 96365; 96375; 99285; J1160; J1650; J1940; J2250; J3475; J7040

== ENCOUNTER 2021-02-17 17:11 | Inpatient (IN) | payer OTHER ==
--- OUTSIDE RECORDS SUMMARY | 2021-02-17 17:14 | XMS REPORT | Continuity of Care Document ---
:1945 Author Organization [facility] t Address [address] [place] [address] Support Name Relationship Address Phone JENNIFER Cole 13 [birth year][address] [place] [address] Care Team Providers Name Role Phone JACQUELINE, E Primary Care Physician Unavailable JELANI Attending Clinician Unavailable Payers Payer Name Policy Type Policy Number Effective Date Expiration Date S ource Problems Condition Condition Condition Status Onset Resolution Last Treating Co mments Source Name Details Category Date Date Treatment Clinician Date Anticoagul Anticoagul Disease Active U nivers ated ated 9-20 ity of 00:00: [place] [address] Medical Branch Vaginal Vaginal Disease Active 2019-0 Univers atrophy atrophy 4-13 ity of 00:00: [address] Encounter Encounter Disease Active 2019-0 Uni vers for for 1-13 ity of pessary pessary 00:00: [place] maintenanc maintenanc 00 Me dical e e Branch Allergies, Adverse Reactions, Alerts Allergy Allergy Status Severity Reaction(s) Onset Inactive Treating Comm ents Source Name Type Date Date Clinician NO KNOWN Drug Active Univers ALLERGIE Class ity of S [facility] Social History Social Habit Start Date Stop Date Quantity Comments Source Exposure to Not sure University SARS-CoV-2 [place] Medical (event) Branch Alcohol intake 2021-02-01 2021-02-01 Current University of 00:00:00 00:00:00 non-drinker of [facility] alcohol Branch (finding) Tobacco use and 2016-07-28 2016-07-28 Never used Universit y of exposure 00:00:00 00:00:00 [facility] History of 2016-07-28 Smoker University of tobacco use 00:00:00 [facility] Sex Ass[birth year] Universit y of 00:00:00 00:00:00 [facility] Smoking Status Start Date Stop Date Source Former smoker 2016-07-28 00:00:00 2016-07-28 00:00:00 Universi ty of [facility] Medications Ordered Filled Start Stop Current Ordering Indication Dosage Frequency Signature Comments Components Source Medication Medication Date Date Medication? Clinician (SIG) Name Name estradioL 2020-02 Yes [id number] Apply 1g Univers (ESTRACE) 2-13 vaginally ity o f 0.01 % (0.1 00:00: at bedtime [place] mg/gram) 00 every Medical vaginal night for Branch cream 2 weeks and then apply 1g vaginally at bedtime 3 times per week (Monday//) phenazopyri 2020-02 Yes [id number] 100mg Take 1 Univers dine 2-13 tablet by ity of (PYRIDIUM) 00:00: mouth 2 [place] 100 mg 00 (two) Medical tablet times Branch daily as needed for Other (bladder spasms) for up to 30 doses. Oxyquinolin 2019-02 Yes [id number] .5{appl Insert 0.5 Univers e-Na Lauryl 1-10 icator} Applicator ity of Sulfate 00:00: s into [place] (TRIMO-ASTUDILLO 00 vagina Medical JELLY) SEE-INSTRU Branch 0.025-0.01 CTIONS. % Gel Apply 1/2 applicator per vagina twice weekly until discontinu e estradiol 2019-0 Yes [id number] 1g Insert 1 g Univers 0.01 % (0.1 4-27 into ity of mg/gram) 00:00: vagina 2 [place] vaginal 00 (two) Medical cream times per Branch week (per protocol). sotalol 2019-0 Yes 80mg Take 80 mg Univ ers (SOTALOL 4-13 by mouth ity of AF) 80 mg 09:44: every 12 [place] tablet 42 (twelve) Medical hours. Branch rivaroxaban 2019-0 Yes 20mg Take 20 mg Univers 20 mg 4-13 by mouth. ity of tablet 09:44: [place] 42 Medical Branch acetaminoph Yes Take by Un destiny en 325 mg 6-13 mouth ity of tablet 08:42: every 6 [place] 44 (six) Medical hours as Branch needed. MULTIVITAMI Yes Take by Un destiny N/IRON/FOLI 6-13 mouth. ity of C ACID 08:42: [place] (CENTRUM 44 Medical COMPLETE Branch ORAL) canaglifloz 2019-0 Yes Take by Un destiny in 6-13 mouth. ity of (INVOKANA) 08:42: [place] 100 mg 44 Medical tablet Branch aspirin 81 2019-0 Yes 81mg Take 81 mg U nivers mg chewable 6-13 by mouth ity of tablet 08:42: daily. [place] [address] Medical Branch hydroCHLORO 2019-0 Yes 25mg Take 25 mg Univers thiazide 25 6-13 by mouth ity of mg tablet 08:42: daily. [place] [address] Medical Branch metFORMIN 2019-0 Yes 500mg Take 500 Uni vers 500 mg 6-13 mg by ity of tablet 08:42: mouth 2 [place] [address] (two) Medical times Branch daily with meals. acetaminoph 2019-0 Yes 1{tbl} Take 1 Un destiny en-codeine 6-13 tablet by ity of 300-30 mg 08:42: mouth [facility] 44 every 4 Medical (four) Branch hours as needed. amLODIPine 2019-0 Yes 10mg Take 10 mg U nivers (NORVASC) 6-13 by mouth ity of 10 mg 08:42: daily. [place] [address] Medical Branch metFORMIN 2018-0 Yes 1000mg Take 1,000 Univers 1,000 mg 24 6-13 mg by ity of hr tablet 08:42: mouth [place] [address] daily with Medical breakfast. Branch glimepiride 2018-0 Yes 4mg Take 4 mg U nivers 4 mg tablet 6-13 by mouth ity of 08:42: daily with [place] [address] breakfast. Medical Branch canaglifloz 2019-0 Yes Take by Un destiny in 6-13 mouth. ity of (INVOKANA) 08:42: [place] 300 mg 44 Medical tablet Branch carvedilol 2019-0 Yes 12.5mg Take 12.5 Univers 12.5 mg 6-13 mg by ity of tablet 08:42: mouth 2 [place] [address] (two) Medical times Branch daily with meals. gabapentin 2019-0 Yes 300mg Take 300 Un destiny 300 mg 6-13 mg by ity of capsule 08:42: mouth 3 [place] [address] (three) Medical times Branch daily. Oxyquinolin 2018-0 Yes .5{appl Insert 0.5 Univers e-Na Lauryl 10-16 icator} Applicator ity of Sulfate 00:00: s into [place] (TRIMO-ASTUDILLO 00 vagina Medical JELLY) SEE-INSTRU Branch 0.025-0.01 CTIONS. % Gel Apply 1/2 applicator per vagina twice weekly until discontinu e Vital Signs Vital Name Observation Time Observation Value Comments Source Systolic blood 2021-02-15 20:00:00 97 mm[Hg] Univer sity of pressure [facility] Diastolic blood 2021-02-15 20:00:00 64 mm[Hg] Unive rsity [facility] Heart rate 2021-02-15 20:00:00 73 /min [facility] Body temperature 2021-02-15 20:00:[address] [facility] 2021-02-15 20:00:00 18 /min [facility] Body height 2021-02-15 20:00:00 160 cm [facility] Body weight 2021-02-15 20:00:00 108.41 kg [facility] BMI 2021-02-15 20:00:00 42.34 kg/m2 [facility] Procedures This patient has no known procedures. Encounters Start End Encounter Admission Attending Care Care Encounter Source Date/Time Date/Time Type Type Clinicians Facility Department ID 2021-03-15 2021-03-15 [id number] Univers 13:30:00 13:30:00 BOZENA [id number] ity [facility] 2021-02-15 2021-02-15 [facility] [id number] Univers 13:30:00 14:00:00 Visit Bozena MELENDREZ [id number] i ty [facility] [id number] [place] PROFESS[place] [id number] Va dical NAL 098 Branch BUILDING Results This patient has no known results.
--- NOTE | 2021-02-17 18:18 | RAD REPORT ---
EXAM DESCRIPTION: RAD - Chest Pa And Lat (2 Views) - 02/17/2021 6:13 pm CLINICAL HISTORY: COUGH Chest pain. COMPARISON: Chest Single View dated 05/14/2019; CHEST SINGLE VIEW dated 11/23/2012 FINDINGS: Moderate bilateral pulmonary opacities are present, greater on the left, likely representi ng viral infection. The heart is mildly enlarged in size.
[2021-02-17 22:34] LABS: Absolute Lymphocytes (CBC) 2.4 K/uL (0.7-4.9); Hematocrit 29.7 % (36.0-45.0); MPV 8.1 fL (7.6-11.3); RBC Red Blood Cell Count 3.22 M/uL (3.86-4.86)
[2021-02-17 22:35] LABS: Protime INR 1.54
[2021-02-17 22:51] LABS: ALT/SGPT 19 U/L (12-78); AST/SGOT 30 U/L (15-37); Alkaline Phosphatase 80 U/L (45-117); BUN Blood Urea Nitrogen 15 mg/dL (7-18); Bicarbonate 25 mmol/L (21-32); Bilirubin Direct 0.3 mg/dL (0-0.2); Bilirubin Total 0.7 mg/dL (0.2-1.0); Glucose Level 92 mg/dL (74-106); Magnesium 1.5 mg/dL (1.8-2.4); NT PRO-BNP 1230 pg/mL (<125); Potassium 3.7 mmol/L (3.5-5.1); Protein, Total 8.6 g/dL (6.4-8.2); Sodium Level 135 mmol/L (136-145); Troponin (Emerg Dept Use Only) < 0.02 ng/mL (0.0-0.045)
[2021-02-18] MEDS ORDERED: MAGNESIUM SULFATE 1 gm IVPB 1 GM/100 ML BAG IV ONE (00:51)
--- NOTE | 2021-02-18 01:07 | ER ---
Nurse's Notes [facility] Name: Taryn Sebastian Age: 75 yrs Sex: Female : 1945 Arrival Date: 02/17/2021 Time: 17:13 Bed 6 Private MD: Daniel Ovalles E Diagnosis: Coronavirus infection, unspecified;Hypoxia Presentation: 02/17 17:52 Chief complaint: Patient states: this morning began feeling shortness of breath; cough vg1 x1 week; denies NVD. Coronavirus screen: Vaccine status: Patient reports being unvaccinated. Client denies travel out of the [place] in the last 14 days. Ebola Screen: Patient negative for fever greater than or equal to 101.5 degrees Fahrenheit, and additional compatible Ebola Virus Disease symptoms. Initial Sepsis Screen: Does the patient meet any 2 criteria? RR > 20 per min. No. Patient's initial sepsis screen is negative. Does the patient have a suspected source of infection? No. Patient's initial sepsis screen is negative. Risk Assessment: Do you want to hurt yourself or someone else? Patient reports no desire to harm self or others. Onset of symptoms was February 17, 2021. 17:52 Method Of Arrival: Ambulatory vg1 17:52 Acuity: BASHIR 3 vg1 Triage Assessment: 17:54 General: Appears in no apparent distress. uncomfortable, Behavior is calm, cooperative. vg1 Pain: Complains of pain in back Pain currently is 4 out of 10 on a pain scale. Quality of pain is described as sharp. Respiratory: Reports shortness of breath at rest on exertion cough that is dry, Airway is patent Respiratory effort is even, unlabored, Respiratory pattern is tachypnea Onset: The symptoms/episode began/occurred cough x1 week, the patient has moderate shortness of breath. Historical: - Allergies: 17:54 No Known Allergies; vg1 - PMHx: 17:54 Arthritis; Atrial Fib; Diabetes - NIDDM; Hypercholesterolemia; Hypertensive disorder; vg1 - PSHx: 17:54 Splenectomy; Pancreas; vg1 - Immunization history:: Client reports having NOT received the Covid vaccine. - Social history:: Smoking status: Patient denies any tobacco usage or history of. Screenin:30 Abuse screen: Denies threats or abuse. Nutritional screening: No deficits noted. bb Tuberculosis screening: No symptoms or risk factors identified. Fall Risk None identified. Assessment: 21:30 General: Appears in no apparent distress. uncomfortable, obese, Behavior is calm, bb cooperative. Neuro: Level of Consciousness is awake, alert, obeys commands, Oriented to person, place, time, situation. Cardiovascular: Heart tones S1 S2 present Capillary refill < 3 seconds Patient's skin is warm and dry. Pulses are palpable in right radial artery and left radial artery Rhythm is sinus rhythm. Respiratory: Respiratory effort is labored, Respiratory pattern is tachypnea Breath sounds with crackles in right posterior lower lobe. GI: Abdomen is obese. Derm: Skin is dry, Skin is pale, Skin temperature is warm. Musculoskeletal: Circulation, motion, and sensation intact. 22:35 Reassessment: pt is A\\T\\O x 4, resting quietly, awaiting diagnostic results, family at bb bedside. 23:50 Reassessment: Patient is alert, oriented x 3, equal unlabored respirations, skin bb warm/dry/pink. pt sitting on side of bed states she is more comfortable, IV site intact, family at bedside. 02/18 00:31 Reassessment: pt is A\\T\\O x 4, resp less labored, sitting in recliner for comfort snack bb and drink provided. Pt instructed on need for admit verbalized understanding of and agrees to plan of care, IV site intact with no erythema or edema noted. 01:43 Reassessment: pt in Afib with RVR Noe SAINI notified new orders received pt bb medicated see APR. Vital Signs: 02/17 17:52 BP 146 / 84; Pulse 72; Resp 26; Temp 98.2(O); Pulse Ox 94% ; Weight 107.05 kg; Height 5 vg1 ft. 6 in. (167.64 cm); Pain 0/10; 22:00 BP 144 / 74; Pulse 86; Resp 24 S; Pulse Ox 88% on R/A; bb 22:15 Pulse Ox 92% on 3 lpm NC; bb 23:51 BP 155 / 87; Pulse 85; Resp 22 S; Pulse Ox 94% on 2 lpm NC; bb 02/18 01:00 BP 131 / 70; Pulse 91; Resp 20 S; Pulse Ox 92% on 2 lpm NC; bb 02:05 BP 110 / 64; Pulse 138; Resp 24 S; Pulse Ox 96% on 2 lpm NC; bb 02/17 17:52 Body Mass Index 38.09 (107.05 kg, 167.64 cm) vg1 ED Course: 02/17 17:13 Patient arrived in ED. as 17:13 Daniel Ovalles MD is Private Physician. as 17:54 Triage completed. vg1 17:54 Arm band placed on. vg1 18:07 COVID swab sent to lab. Flu and/or RSV swab sent to lab. vg1 18:13 Chest Pa And Lat (2 Views) XRAY In Process Unspecified. EDMS 21:25 Medina Palomares, RODRIGUE [facility]. kb 21:25 Chino Haines MD is Attending Physician. kb 21:30 Patient has correct armband on for positive identification. Bed in low position. Call bb light in reach. Side rails up X2. Adult w/ patient. Pulse ox on. NIBP on. Warm blanket given. socks given. 21:30 EKG done, by ED staff, reviewed by Chino Haines MD. bb 21:31 Cata Jean, RN is Primary Nurse. [facility] 22:24 Initial lab(s) drawn, by nm, sent to lab. Inserted saline lock: 20 gauge in right in kv1 left antecubital area, using aseptic technique. 02/18 00:09 COVID-19 SARS RT PCR (Document "Date of Onset" if Symptomatic) Sent. lt3 01:01 No provider procedures requiring assistance completed. Patient admitted, IV remains in bb place. 01:06 Isa Griffin MD is Hospitalizing Provider. kb 07:38 Primary Nurse role handed off by Cata Jean, NO jl7 15:03 Slim Mcmillan, NO is Primary Nurse. bp Administered Medications: 01:00 Drug: Magnesium Sulfate 1 grams Route: IVPB; Infused Over: 30 mins; Site: left bb antecubital; 01:30 Follow up: IV Status: Completed infusion; IV Intake: 100ml bb 01:55 Drug: Metoprolol 25 mg Route: PO; bb 01:55 Drug: Lopressor (metoprolol) 5 mg Route: IVP; Site: left antecubital; bb Intake: 01:30 IV: 100ml; Total: 100ml. bb Outcome: 01:01 Instructed on the need for admit. bb 01:06 Decision to Hospitalize by Provider. kb 15:03 Patient left the ED. bp Signatures: Dispatcher [employer] EDMedina Beck, YUDITH-Elizabet [employer] CHIEF-Nayla Thayer Brenda, RN RN bb Oumar Ortiz, RN RN jl7 Slim Mcmillan, RN RN Shira Washington RN RN vg1 Cata Jean RN RN 5 Afia Carreon 3 Emile Del Castillo [facility]
--- NOTE | 2021-02-18 01:07 | EDPHYS ---
Physician Documentation [facility] Name: Taryn Sebastian Age: 75 yrs Sex: Female : 1945 Arrival Date: 02/17/2021 Time: 17:13 Bed 6 Private MD: Daniel Ovalles E ED Physician Chino Haines HPI: 02/17 23:38 This 75 yrs old Female presents to ER via Ambulatory with complaints of kb Shortness Of Breath, Sore Throat. 23:38 The patient has shortness of breath at rest. Onset: The symptoms/episode began/occurred kb yesterday. Duration: The symptoms are continuous. The patient's shortness of breath is aggravated by exertion, is alleviated by nothing. Associated signs and symptoms: Pertinent positives: non-productive cough, Pertinent negatives: chest pain. Severity of symptoms: At their worst the symptoms were moderate in the emergency department the symptoms are unchanged. The patient has not experienced similar symptoms in the past. The patient has not recently seen a physician. Pt reports cough for 4 days, shortness of breath and weakness started yesterday. Historical: - Allergies: 17:54 No Known Allergies; vg1 - PMHx: 17:54 Arthritis; Atrial Fib; Diabetes - NIDDM; Hypercholesterolemia; Hypertensive disorder; vg1 - PSHx: 17:54 Splenectomy; Pancreas; vg1 - Immunization history:: Client reports having NOT received the Covid vaccine. - Social history:: Smoking status: Patient denies any tobacco usage or history of. ROS: 23:36 Constitutional: Negative for fever, chills, and weight loss. kb 23:36 Respiratory: Positive for cough, dyspnea on exertion, shortness of breath, Negative for hemoptysis, orthopnea, pleurisy, sputum production, wheezing. 23:36 Neuro: Positive for weakness. 23:36 All other systems are negative. Exam: 23:36 Constitutional: This is a well developed, well nourished patient who is awake, alert, kb and in no acute distress. Head/Face: Normocephalic, atraumatic. ENT: Moist Mucous membranes Cardiovascular: Regular rate and rhythm with a normal S1 and S2. No gallops, murmurs, or rubs. No pulse deficits. Respiratory: Respirations even and unlabored. No increased work of breathing. Talking in full sentences Abdomen/GI: Soft, non-tender. No distention Skin: Warm, dry with normal turgor. Normal color. MS/ Extremity: Pulses equal, no cyanosis. Neurovascular intact. Full, normal range of motion. Neuro: Awake and alert, GCS 15, oriented to person, place, time, and situation. Moves all extremities. Normal gait. Psych: Awake, alert, with orientation to person, place and time. Behavior, mood, and affect are within normal limits. 23:36 Cardiovascular: Pulses: no pulse deficits are appreciated, Edema: pedal edema. 02/18 00:32 ECG was reviewed by the Attending Physician. kb Vital Signs: 02/17 17:52 BP 146 / 84; Pulse 72; Resp 26; Temp 98.2(O); Pulse Ox 94% ; Weight 107.05 kg; Height 5 vg1 ft. 6 in. (167.64 cm); Pain 0/10; 22:00 BP 144 / 74; Pulse 86; Resp 24 S; Pulse Ox 88% on R/A; bb 22:15 Pulse Ox 92% on 3 lpm NC; bb 23:51 BP 155 / 87; Pulse 85; Resp 22 S; Pulse Ox 94% on 2 lpm NC; bb 02/18 01:00 BP 131 / 70; Pulse 91; Resp 20 S; Pulse Ox 92% on 2 lpm NC; bb 02:05 BP 110 / 64; Pulse 138; Resp 24 S; Pulse Ox 96% on 2 lpm NC; bb 02/17 17:52 Body Mass Index 38.09 (107.05 kg, 167.64 cm) vg1 MDM: 02/17 21:32 Patient medically screened. kb 23:37 Data reviewed: vital signs, nurses notes. Data interpreted: Pulse oximetry: on room air kb is 92 %. Interpretation: borderline. ED course: Pt's oxygen sat down to 88% while resting on stretcher, 85% after going to restroom with wheelchair. Placed on 3L via NC, oxygen up to 95%. 02/18 01:03 Counseling: I had a detailed discussion with the patient and/or guardian regarding: the kb historical points, exam findings, and any diagnostic results supporting the discharge/admit diagnosis, lab results, radiology results, the need for further work-up and treatment in the hospital. 01:05 Physician consultation: Isa Griffin MD was contacted at 01:05, regarding admission, kb to the telemetry unit. patient's condition, and will see patient in ED. 02/17 17:59 Order name: COVID-19 (Coronavirus) Document "Date of Onset" if Symptomatic [facility] 02/17 17:59 Order name: Flu; Complete Time: 21:04 1 02/17 21:43 Order name: Basic Metabolic Panel; Complete Time: 22:55 kb 02/17 21:43 Order name: CBC with Diff; Complete Time: 22:35 kb 02/17 21:43 Order name: LFT's; Complete Time: 22:55 kb 02/17 21:43 Order name: Magnesium; Complete Time: 22:55 kb 02/17 21:43 Order name: NT PRO-BNP; Complete Time: 22:55 kb 02/17 21:43 Order name: PT-INR; Complete Time: 22:36 kb 02/17 21:43 Order name: Troponin (emerg Dept Use Only); Complete Time: 22:55 kb 02/18 00:02 Order name: COVID-19 SARS RT PCR (Document "Date of Onset" if Symptomatic); Complete kb Time: 01:04 02/18 05:09 Order name: Hemoglobin A1c [facility] 02/18 05:12 Order name: C-Reactive Protein [facility] 02/18 05:12 Order name: Iron [facility] 02/18 05:12 Order name: Transferrin Sat/Iron Binding [facility] 02/17 17:59 Order name: Chest Pa And Lat (2 Views) XRAY; Complete Time: 21:04 [facility] 02/17 21:43 Order name: EKG; Complete Time: 21:44 kb 02/17 21:43 Order name: Cardiac monitoring; Complete Time: 01:00 kb 02/17 21:43 Order name: EKG - Nurse/Tech; Complete Time: 22:31 kb 02/17 21:43 Order name: IV Saline Lock; Complete Time: 22:31 kb 02/17 21:43 Order name: Labs collected and sent; Complete Time: 22:31 kb 02/17 21:43 Order name: O2 Per Protocol; Complete Time: 22:31 kb 02/17 21:43 Order name: O2 Sat Monitoring; Complete Time: 22:31 kb 02/18 01:16 Order name: CONS Physician Consult [facility] 02/18 05:12 Order name: Folic Acid, (Folate) EDMS 02/18 05:12 Order name: Vitamin B12 Level EDMS 02/18 05:44 Order name: Procalcitonin EDMS 02/18 13:33 Order name: CT EDMS EC:32 Rate is 83 beats/min. Rhythm is regular. QRS [place] is Normal. NE interval is normal at kb 156 msec. QRS interval is normal at 76 msec. QT interval is normal at 356 msec. Administered Medications: 01:00 Drug: Magnesium Sulfate 1 grams Route: IVPB; Infused Over: 30 mins; Site: left bb antecubital; 01:30 Follow up: IV Status: Completed infusion; IV Intake: 100ml bb 01:55 Drug: Metoprolol 25 mg Route: PO; 01:55 Drug: Lopressor (metoprolol) 5 mg Route: IVP; Site: left antecubital; Disposition Summary: 02/18/21 01:06 Hospitalization Ordered Hospitalization Status: Inpatient Admission kb Provider: Isa Griffin Condition: Stable kb Problem: new kb Symptoms: are unchanged kb Bed/Room Type: Standard kb Location: [facility] ER HOLD(02/18/21 02:23) cs9 Room Assignment: ERHOLD-(02/18/21 02:23) cs9 Diagnosis - Coronavirus infection, unspecified kb - Hypoxia kb Forms: - Medication Reconciliation Form kb - SBAR form kb Addendum: 02/22/2021 19:04 Co-signature as Attending Physician, Chino Haines MD. maxim Signatures: Dispatcher [employer] [facility] Medina Palomares, FISHING MANAGER-C FISHING MANAGER-Chino Carmichael MD MD pkl Ballard, Brenda RN RN Shira Caal RN RN Silvia Freedman cs9 Corrections: (The following items were deleted from the chart) 02/18 02:23 01:06 Telemetry/MedSurg (Inpatient) kb cs9 02:23 01:06 kb cs9
[2021-02-18] MEDS ORDERED: METOPROLOL TAR 25 MG TAB ONE (01:50)
[2021-02-18] MEDS ORDERED: METOPROLOL TARTRATE 5 MG/5 ML INJ IV ONE (01:50)
--- NOTE | 2021-02-18 02:09 | P.HP ---
Certification for Inpatient Patient admitted to: Inpatient With expected LOS: >2 Midnights Patient will require the following post-hospital care: None Practitioner: I am a practitioner with admitting privileges, knowledge of patient current condition, hospital course, and medical plan of care. Services: Services provided to patient in accordance with Admission requirements found in Title 42 Section 412.3 of the Code of Federal Regulations <Noe Murrell - Last Filed: 02/18/21 02:03> Patient History Date of Service: 02/18/21 Reason for admission: covid pneumonia History of Present Illness: Ms. Sebastian is a 75 kyo F with atrial fibrillation, DM, HTN, HLD who presents with two weeks of cough, SOB and malaise. Reports SCHAFER, pleuritic pain, wheezing. She has not had an appetite lately. Denies fever, nausea, vomiting, diarrhea. Room air sats 85-88%, improved to 95% on 3L nasal canula. COVID test positive. She is not vaccinated. BNP 1230. CXR FINDINGS: Moderate bilateral pulmonary opacities are present, greater on the left, likely representing viral infection. The heart is mildly enlarged in size. - Past Medical/Surgical History Diabetic: Yes -: Diabetes Mellitus -: Pancreatic tumor s/p removal -: Hypertension -: Severe osteoarthritis -: HLD -: atrial fibrillation on chronic anticoagulation -: tubendectomy -: Cholecysectomy -: tumor on pancreas removed 2012 -: Splenectomy with pancreatic tumor removal - Family History Family History: Reviewed- Non-Contributory - Social History Smoking Status: Never smoker Alcohol use: No CD- Drugs: No Caffeine use: No Place of Residence: Home <Noe Murrell Kadeem - Last Filed: 02/18/21 02:03> Date of Service: 02/18/21 <Isa Griffin - Last Filed: 02/22/21 01:49> Allergies No Known Allergies Allergy (Verified 12/16/13 15:45) Home Medications: Metformin ER [Glucophage ER*] 500 mg PO NOON 12/16/13 Codeine/APAP [Tylenol #3*] 1 tab PO TID PRN 05/14/19 Gabapentin [Neurontin*] 1 cap PO TID 05/14/19 Glimepiride [Amaryl] 4 mg PO BID 05/14/19 Aspirin Chewable [Aspirin Chewable*] 81 mg PO DAILY #30 tab.chew 05/17/19 Rivaroxaban [Xarelto] 20 mg PO DAILY #30 tablet 05/17/19 Sotalol HCl [Betapace*] 80 mg PO BID 6AM 6PM #60 tab 05/17/19 Furosemide 40 mg PO DAILY #30 tablet 05/18/19 Review of Systems General: Weakness, Malaise, As per HPI Eyes: Unremarkable ENT: Unremarkable Respiratory: Cough, Shortness of Breath, SOB with Excertion, Pleuritic Pain, Sputum, Wheezing, As per HPI Cardiovascular: Unremarkable Gastrointestinal: Unremarkable Genitourinary: Unremarkable Musculoskeletal: Unremarkable Integumentary: Unremarkable Neurological: Unremarkable Lymphatics: Unremarkable <Noe Murrell - Last Filed: 02/18/21 02:03> Physical Examination - Physical Exam General: Alert, In no apparent distress HEENT: Atraumatic, PERRLA, Mucous membr. moist/pink, EOMI, Sclerae nonicteric Neck: Supple, 2+ carotid pulse no bruit, No LAD, Without JVD or thyroid abnormality Respiratory: Normal air movement, Rhonchi/gurgles Cardiovascular: Normal S1 S2, Irregular heart rate/rhythm Gastrointestinal: Normal bowel sounds, No tenderness Musculoskeletal: No tenderness Integumentary: No rashes Neurological: Normal speech, Normal strength at 5/5 x4 extr, Normal tone, Normal affect Lymphatics: No axilla or inguinal lymphadenopathy - Studies Laboratory Data (last 24 hrs) 02/17/21 22:21: PT 17.8 H, INR 1.54 02/17/21 22:21: WBC 9.80, Hgb 10.0 L, Hct 29.7 L, Plt Count 378 02/17/21 22:21: Sodium 135 L, Potassium 3.7, BUN 15, Creatinine 0.91, Glucose 92, Magnesium 1.5 L, Total Bilirubin 0.7, AST 30, ALT 19, Alkaline Phosphatase 80 Microbiology Data (last 24 hrs): 02/17/21 18:00 Nasopharnyx Influenza Type A Antigen Screen - Final 02/17/21 18:00 Nasopharnyx Influenza Type B Antigen Screen - Final <Noe Murrell - Last Filed: 02/18/21 02:03> Assessment and Plan - Problems (Diagnosis) (1) Pneumonia due to COVID-19 virus Status: Acute (2) Atrial fibrillation Status: Chronic Qualifiers: Atrial fibrillation type: unspecified Qualified Code(s): I48.91 - Unspecified atrial fibrillation (3) T2DM (type 2 diabetes mellitus) Status: Chronic Qualifiers: Diabetes mellitus nursing home insulin use: unspecified nursing home insulin use status Diabetes mellitus complication status: without complication Qualified Code(s): E11.9 - Type 2 diabetes mellitus without complications (4) HLD (hyperlipidemia) Status: Chronic Qualifiers: Hyperlipidemia type: unspecified Qualified Code(s): E78.5 - Hyperlipidemia, unspecified (5) Hypertension Onset Date: 12/20/13 Status: Chronic Qualifiers: Hypertension type: primary hypertension Qualified Code(s): I10 - Essential (primary) hypertension - Plan pulmonology consulted, respiratory therapy consulted continue IV steroids, covid supplements O2 as needed CTPE pending metoprolol PO BID, IV metoprolol PRN, continue Xarelto sliding scale insulin and accuchecks reconcile and continue home medications Discharge Plan: Home Plan to discharge in: 72 Hours - Advance Directives Does patient have a Living Will: No Does patient have a Durable POA for Healthcare: No - Code Status/Comfort Care Code Status Assessed: Yes (full code ) Critical Care: No Time Spent Managing Pts Care (In Minutes): 70 <Noe Murrell - Last Filed: 02/18/21 02:03> Date of Service: 02/18/21 Agree with HPI as mentioned above <Isa Griffin - Last Filed: 02/22/21 01:49>
[2021-02-18] MEDS ORDERED: HYDRALAZINE HCL 20 MG/ML VIAL IV PRN (02:58)
[2021-02-18] MEDS ORDERED: MORPHINE 2 MG/ML SYR IV PRN (02:58)
[2021-02-18] MEDS ORDERED: MELATONIN 5 MG TABLET PO PRN (02:58)
[2021-02-18] MEDS ORDERED: METOPROLOL TARTRATE 5 MG/5 ML INJ IV PRN (02:58)
[2021-02-18] MEDS ORDERED: BENZONATATE 100 MG CAP PO PRN (02:58)
[2021-02-18] MEDS ORDERED: ONDANSETRON 4 MG/2 ML VIAL IV PRN (02:58)
[2021-02-18] MEDS: METHYLPREDNISOLONE 125 MG INJ IV SCH ×2 (02:58→09:00)
[2021-02-18] MEDS ORDERED: ACETAMINOPHEN 500 MG TAB PO PRN (02:58)
[2021-02-18 04:06] VITALS: BP 110/65
[2021-02-18] MEDS ORDERED: METHYLPREDNISOLONE 125 MG INJ ONE (04:18)
[2021-02-18 05:06] VITALS: BMI 37.9
[2021-02-18 05:12] LABS: Ferritin 175.2 ng/mL (8-388); Folic Acid, (Folate) 10.5 ng/mL (3.1-17.5)
[2021-02-18] MEDS ORDERED: SOTALOL HCL 80 MG TAB ONE (05:18)
[2021-02-18] MEDS ORDERED: SOTALOL HCL 80 MG TAB PO SCH (06:00)
[2021-02-18] MEDS: INSULIN -REGULAR HUMAN 50 UNIT/0.5 ML ML SQ SCH ×2 (07:30→11:30)
[2021-02-18 08:11] VITALS: O2SAT 97
[2021-02-18] MEDS ORDERED: FUROSEMIDE 40 MG TABLET PO SCH (09:00)
[2021-02-18] MEDS ORDERED: RIVAROXABAN 20 MG TABLET PO SCH (09:00)
[2021-02-18] MEDS ORDERED: THIAMINE HCL 100 MG TABLET PO SCH (09:00)
[2021-02-18] MEDS ORDERED: ASPIRIN EC 81 MG TAB PO SCH (09:00)
[2021-02-18] MEDS ORDERED: ASCORBIC ACID 500 MG TABLET PO SCH (09:00)
[2021-02-18] MEDS ORDERED: ZINC SULFATE 220 MG CAP PO SCH (09:00)
[2021-02-18] MEDS ORDERED: VITAMIN D 1000 UNIT TAB PO SCH (09:00)
[2021-02-18] MEDS ORDERED: FAMOTIDINE 20 MG TAB PO SCH (09:00)
[2021-02-18] MEDS ORDERED: ASCORBIC ACID 500 MG TABLET ONE (09:33)
[2021-02-18] MEDS ORDERED: RIVAROXABAN 20 MG TABLET PO ONE (09:33)
[2021-02-18] MEDS ORDERED: FUROSEMIDE 40 MG TABLET ONE (09:33)
[2021-02-18] MEDS ORDERED: ASPIRIN EC 81 MG TAB PO ONE (09:34)
[2021-02-18] MEDS ORDERED: THIAMINE HCL 100 MG TABLET ONE (09:34)
[2021-02-18] MEDS ORDERED: ZINC SULFATE 220 MG CAP ONE (09:34)
[2021-02-18] MEDS ORDERED: METHYLPREDNISOLONE 40 MG INJ ONE (09:35)
[2021-02-18] MEDS ORDERED: VITAMIN D 1000 UNIT TAB ONE (09:35)
[2021-02-18] MEDS ORDERED: FAMOTIDINE 20 MG TAB ONE (09:35)
[2021-02-18] MEDS ORDERED: SOD FERRIC GLUC COMPLX/SUCROSE 250 MG in NA CHLORIDE 0.9% 250 ML IV SCH (11:00)
[2021-02-18] MEDS ORDERED: CYANOCOBALAMIN 1000MCG/ML INJ IM ONE (11:00)
--- NOTE | 2021-02-18 12:42 | P.CNS ---
Date of Consult: 02/18/21 Reason for Consult: Coronavirus pneumonia Chief Complaint: covid pneumonia History of Present Illness: Patient is 75 years of age metabolic syndrome atrial fibrillation diabetes hypertension he been sick for about 2 weeks complaining of cough shortness of breath dyspnea on exertion tested positive for coronavirus pneumonia he is doing much better Allergies No Known Allergies Allergy (Verified 12/16/13 15:45) Home Medications: Metformin ER [Glucophage ER*] 500 mg PO NOON 12/16/13 Codeine/APAP [Tylenol #3*] 1 tab PO TID PRN 05/14/19 Gabapentin [Neurontin*] 1 cap PO TID 05/14/19 Glimepiride [Amaryl] 4 mg PO BID 05/14/19 Aspirin Chewable [Aspirin Chewable*] 81 mg PO DAILY #30 tab.chew 05/17/19 Rivaroxaban [Xarelto] 20 mg PO DAILY #30 tablet 05/17/19 Sotalol HCl [Betapace*] 80 mg PO BID 6AM 6PM #60 tab 05/17/19 Furosemide 40 mg PO DAILY #30 tablet 05/18/19 - Past Medical/Surgical History Diabetic: Yes -: Diabetes Mellitus -: Pancreatic tumor s/p removal -: Hypertension -: Severe osteoarthritis -: HLD -: atrial fibrillation on chronic anticoagulation -: tubendectomy -: Cholecysectomy -: tumor on pancreas removed 2012 -: Splenectomy with pancreatic tumor removal - Social History Alcohol use: No CD- Drugs: No Caffeine use: No Place of Residence: Home Review of Systems General: Weakness Respiratory: Shortness of Breath Physical Examination Temp Pulse Resp BP Pulse Ox 134 H 22 H 110/65 94 02/18/21 04:00 02/18/21 04:00 02/18/21 04:00 02/18/21 04:00 General: Alert, In no apparent distress, Oriented x3, Cooperative Laboratory Data (last 24 hrs) 02/17/21 22:21: PT 17.8 H, INR 1.54 02/17/21 22:21: WBC 9.80, Hgb 10.0 L, Hct 29.7 L, Plt Count 378 02/17/21 22:21: Sodium 135 L, Potassium 3.7, BUN 15, Creatinine 0.91, Glucose 92, Magnesium 1.5 L, Total Bilirubin 0.7, AST 30, ALT 19, Alkaline Phosphatase 80 - Problems (1) Pneumonia due to COVID-19 virus Current Visit: Yes Status: Acute Plan: Patient is 75 years of age admitted with coronavirus pneumonia he is doing well room air saturation is normal chemistries and labs reviewed plan for discharge on Decadron 4 mg twice a day for 10 days in addition to aspirin no pulmonary embolism identified he has mild coronavirus infection
--- NOTE | 2021-02-18 13:32 | RAD REPORT ---
EXAM DESCRIPTION: CT Angiography Chest With Intravenous Contrast CLINICAL HISTORY: The patient is 75 years old and is Female; covid TECHNIQUE: Axial computed tomographic angiography images of the chest with intravenous contrast. S agittal and coronal reformatted images were created and reviewed. This CT exam was performed using one or more of the following dose reduction techniques: automated exposure control, adjustment of t he mA and/or kV according to patient size, and/or use of iterative reconstruction technique. MIP re constructed images were created and reviewed. COMPARISON: No relevant prior studies available. FINDINGS: Artifacts: Motion artifact limits evaluation. Pulmonary arteries: No PE identified. Aorta: No acute findings. No thoracic aortic aneurysm. Lungs: Nonspecific pattern of groundglass opacities in the bilateral upper lobes. Bilateral lowe r lobe and left upper lobe linear atelectasis. Pleural space: Minimal bilateral pleural effusions. No pneumothorax. Heart: Cardiomegaly. Coronary artery calcifications. No significant pericardial effusion. No evidence of RV dysfunction. Mediastinum: No pneumomediastinum. Bones/joints: Degenerative changes in the thoracic spine. No acute compression fracture. No dislocation. Soft tissues: Unremarkable. Lymph nodes: Mildly enlarged precarinal, left paratracheal and AP window lymph nodes, largest me asuring 2.1 cm. IMPRESSION: 1. Motion artifact limits evaluation. No PE identified. 2. Nonspecific pattern of groundglass opacities in the bilateral upper lobes. Bilateral lower lobe and left upper lobe linear atelectasis. Imaging features can be seen with COVID-19 pneumonia, though are nonspecific and can occur with a variety of infectious and noninfectious processes. PneInd Reference: https://pubs.rsna.org/doi/full/10.1148/ryct.[email or web address] 3. Mildly enlarged precarinal, left paratracheal and AP window lymph nodes, largest measuring 2.1 c m. Electronically signed by: Janet Garcia MD 02/18/2021 4:56 AM [employer] Due to temporary technical issues with the PACS/Fluency reporting system, reports are being signed by the in house radiologist without review as a courtesy to ensure prompt reporting. The interpreting r adiologist is fully responsible for the content of the report.
[2021-02-18 15:20] VITALS: TEMP 98.2
[2021-02-18] MEDS ORDERED: dexAMETHasone 4 MG TAB PO SCH (21:00)
--- NOTE | 2021-02-22 01:51 | P.DS ---
Discharge Date: 02/18/21 Disposition: AMA-LEFT AGAINST MEDICAL ADVIC Discharge Condition: GOOD Reason for Admission: covid pneumonia Brief History of Present Illness: Ms. Sebastian is a 75 kyo F with atrial fibrillation, DM, HTN, HLD who presents with two weeks of cough, SOB and malaise. Reports SCHAFER, pleuritic pain, wheezing. She has not had an appetite lately. Denies fever, nausea, vomiting, diarrhea. Room air sats 85-88%, improved to 95% on 3L nasal canula. COVID test positive. She is not vaccinated. BNP 1230. Hospital Course: Patient eloped and left against medical advice Vital Signs/Physical Exam: Temp Pulse Resp BP Pulse Ox 98.2 F 134 H 22 H 110/65 94 02/17/21 17:52 02/18/21 04:00 02/18/21 04:00 02/18/21 04:00 02/18/21 04:00 General: Alert, In no apparent distress, Oriented x3 Laboratory Data at Discharge: WBC 9.80 K/uL (4.3-10.9) 02/17/21 22:21 Hgb 10.0 g/dL (12.0-15.0) L 02/17/21 22: Hct 29.7 % (36.0-45.0) L 02/17/21 22:21 Plt Count 378 K/uL (152-406) 02/17/21 22:21 PT 17.8 SECONDS (9.5-12.5) H 02/17/21 22:21 INR 1.54 02/17/21 22:21 Sodium 135 mmol/L (136-145) L 02/17/21 22:21 Potassium 3.7 mmol/L (3.5-5.1) 02/17/21 22:21 BUN 15 mg/dL (7-18) 02/17/21 22:21 Creatinine 0.91 mg/dL (0.55-1.3) 02/17/21 22:21 Glucose 92 mg/dL (74-106) 02/17/21 22:21 Magnesium 1.5 mg/dL (1.8-2.4) L 02/17/21 22:21 Total Bilirubin 0.7 mg/dL (0.2-1.0) 02/17/21 22:21 AST 30 U/L (15-37) 02/17/21 22:21 ALT 19 U/L (12-78) 02/17/21 22:21 Alkaline Phosphatase 80 U/L (45-117) 02/17/21 22:21 Home Medications: Metformin ER [Glucophage ER*] 500 mg PO NOON 12/16/13 Codeine/APAP [Tylenol #3*] 1 tab PO TID PRN 05/14/19 Gabapentin [Neurontin*] 1 cap PO TID 05/14/19 Glimepiride [Amaryl] 4 mg PO BID 05/14/19 Aspirin Chewable [Aspirin Chewable*] 81 mg PO DAILY #30 tab.chew 05/17/19 Rivaroxaban [Xarelto] 20 mg PO DAILY #30 tablet 05/17/19 Sotalol HCl [Betapace*] 80 mg PO BID 6AM 6PM #60 tab 05/17/19 Furosemide 40 mg PO DAILY #30 tablet 05/18/19 Physician Discharge Instructions: Patient eloped & left against medical advice Followup: Jean Pierre Young PA [Primary Care Provider] - Time spent managing pt's care (in minutes): 35
== END 2021-02-18 15:05 | disposition left against medical advice (07) | DRG 177 ==
LOC: ER 17:11 → ERHOLD 02-18 01:45
PROVIDERS: ADMIT Hospitalist; ATTEND Hospitalist
DX: U07.1 COVID-19 (principal); J12.82 Pneumonia due to coronavirus disease 2019; R09.02 Hypoxemia; E11.9 Type 2 diabetes mellitus without complications; I10 Essential (primary) hypertension; E78.5 Hyperlipidemia, unspecified; I48.91 Unspecified atrial fibrillation; Z79.01 Long term (current) use of anticoagulants; Z53.29 Procedure and treatment not carried out because of patient's decision for other reasons
CPT/HCPCS: 36415; 71046; 71275; 80048; 80076; 82607; 82728; 82746; 83036; 83540; 83735; 83880; 84145; 84466; 84484; 85025; 85610; 86140; 87040; 87205; 87804; 93005; 94760; 96365; 96375; 99284; J2916; J2920; J2930; J3420; J3475; J7050; Q9967; U0003